=== PATIENT | female | born 1955 ===

== ENCOUNTER 2025-05-30 16:36 | Outpatient (CLI) | payer SELFPAY ==
[2025-05-30 17:31] LABS: Anion Gap 11.7 mmol/L (3-11); BUN 12 mg/dL (7-18); CO2 25.3 mmol/L (21.0-32.0); Calcium 9.5 mg/dL (8.5-10.1); Chloride 104 mmol/L (98-107); Estimated GFR 96.50 (mL/min/1.73m2); Glucose 100 mg/dL (74-106); Potassium 3.9 mmol/L (3.5-5.1); Sodium 141 mmol/L (136-145)
[2025-05-30 17:52] LABS: Hemoglobin A1C 6.1 % (<5.7)
== END 2025-05-30 16:37 | disposition home or self-care (01) ==
LOC: LBO 16:36
DX: H25.049 Posterior subcapsular polar age-related cataract, unspecified eye (principal)
CPT/HCPCS: 36415; 80048; 83036